=== PATIENT | female | born 1990 | race Caucasian/White ===

== ENCOUNTER 2022-02-25 16:32 | Emergency (ER) | payer BC, SELFPAY ==
[2022-02-25 16:36] VITALS: BP 120/77; PULSE 60; RESP 17; TEMP 36.2; O2SAT 100
--- NOTE | 2022-02-25 16:45 | DI.CT_ITS ---
Exam(s) CT ABDOMEN PELVIS W EXAM: CT ABDOMEN PELVIS W CLINICAL HISTORY: RLQ pain, n/v/d; hx of endometriosis TECHNIQUE: Imaging Protocol: Axial computed tomography images with coronal and sagittal reformatted images were created and reviewed CONTRAST MATERIAL: Intravenous: Omnipaque 350 Contrast volume:60 mL Oral: No COMPARISON: No exams were available for comparison FINDINGS: ABDOMEN: Lung Bases: Normal where visualized. Liver: Normal density. No measurable mass. Mild periportal edema is present. Portal, Superior Mesenteric, and Splenic Veins: Unremarkable. Gallbladder and Biliary Tract: No radiodense calculus or dilation. Mild pericholecystic fluid. Pancreas: Normal density, no abnormal calcifications or inflammatory process. Spleen: Normal. Adrenals: No masses seen. Kidneys: Normal size, contour and axis. No radiodense stones or obstructive uropathy. No masses seen. Abdominal Aorta: Abdominal portion non-dilated. Bowel: No evidence of bowel obstruction. Mildly dilated loops of small bowel which may represent an ileus. Appendix is unremarkable. Peritoneal Cavity: There is a small amount of pericholecystic fluid and a small amount of fluid in th e right pericolic gutter and pelvis. No free air. Lymph Nodes: Within normal limits. Bones: Within normal limits for the patient's age. Soft Tissues: Unremarkable. The inferior edge of left may appear to be a left breast implant is seen in the lower chest wall. PELVIS: Bladder: Symmetric distention, no gross wall thickening. Reproductive Organs: There is a 2.4 x 2.8 cm right ovarian cyst. The uterus appears mildly heterogen eous which may represent uterine fibroids. Lymph Nodes: Within normal limits. Bones: Within normal limits for the patient's age. IMPRESSION: 1. Mildly dilated loops of small bowel which may reflect an ileus. No transition point is seen to medina ggest obstruction. This may be seen with a mild enteritis. Please correlate clinically. 2. Nonspecific periportal edema in the liver. This may be due to the patient's hydration status. 3. 2.4 x 2.8 cm right ovarian cyst. No further imaging is required. 4. Small amount of abdominal ascites. RADIATION DOSE DELIVERED: 613.47mGy.cm Total DLP DATA REPOSITORY: All CT scans at this facility are submitted to the National Radiology Data Registry (NRDR) Dose Index Registry (DIR) with the [employer] (ACR). RADIATION OPTIMIZATION: All CT scans at this facility use at least one of these dose optimization te chniques: automated exposure control; mA and/or kV adjustment per patient size (includes targeted exa ms where dose is matched to clinical indication); or iterative reconstruction.
[2022-02-25] MEDS: Ondansetron 4 MG/2 ML VIAL IVP (17:14)
[2022-02-25] MEDS: Normal Saline 1,000 ML 1000 ML IV (17:14)
[2022-02-25 17:16] LABS: Abs Immature Grans 0.06 10^3/uL (0.0-0.06); Absolute Basophil Count 0.03 10^3/uL (0.0-0.2); Absolute Lymphocyte Count 0.82 10^3/uL (1.2-3.4); Absolute Neutrophil Count 11.67 10^3/uL (1.2-6.7); Basophils % 0.2; HCT 37.1 % (36.0-46.0); HGB 12.7 g/dL (11.2-15.7); Immature Grans % 0.5; Lymphocytes % 6.3; MCH 32.2 pg (27.0-33.0); MCHC 34.2 % (32.0-36.0); MCV 94 fL (80-95); MPV 10.7 fL (8.0-11.0); Monocytes % 3.2; Neutrophils % 89.8; Platelet Count 213 10^3/uL (130-400); RBC 3.94 10^6/uL (3.93-5.22); RDW 11.7 % (11.7-14.6); RDW-SD 40.6 fL; WBC 12.99 10^3/uL (4.4-10.8)
[2022-02-25] MEDS: diphenhydrAMINE 50 MG/ML VIAL 25 MG IVP (17:16)
[2022-02-25 17:17] LABS: Absolute Monocyte Count 0.42 10^3/uL (0.1-0.8)
[2022-02-25] MEDS: Ketorolac 15 MG/ML VIAL IVP (17:17)
--- NOTE | 2022-02-25 17:22 | W.ED.GENAD ---
Discharge Plan Disposition Patient Disposition: HOME Condition: Improving Discharge Details Clinical Impression: Colitis, Ovarian cyst Primary Care Provider: Unknown,Unknown ED Provider: Nikolas Resendiz Home Meds and New Rx's Prescriptions: New amoxicillin-pot clavulanate 875-125 mg tablet 1 tab PO BID 7 Days Qty: 14 0RF Discharge Instructions Instructions: Ovarian Cyst (ED), Colitis (ED) Medical Decision Making 31-year-old female history of endometriosis presents with right lower quadrant abdominal pain nausea vomiting diarrhea over the past several hours, appears moderately uncomfortable, subjective right lower quadrant tenderness without guarding or rebounding no distention nonperitoneal. Afebrile nontoxic. Appears well-hydrated. Patient is currently on her menstrual period last menstrual period was december. Consider appendicitis versus endometriosis versus colitis versus kidney stone versus UTI. Screening labs imaging analgesia antiemetics fluids close reassessment disposition pending result 20: 34 symptomatology likely related to multifocal colitis as well as possible symptomatic adnexal cyst. Patient much more comfortable after medications and fluids. Will start on Augmentin. Patient to follow-up with her supervisor [employer] as an outpatient. Strict return precautions given. HPI General Date/Time Provider Initiated Documentation: 02/25/22 16:36. HPI Narrative: 31-year-old female history of endometriosis presents with right lower quadrant abdominal pain interval last several hours associate with nausea vomiting and diarrhea, endorses urinary frequency and some back discomfort. Denies history of abdominal surgery. Last menstrual period at the end of December Related Data Home Medications Medication Instructions Recorded Confirmed amoxicillin 875 mg-potassium 1 tab PO BID 7 days #14 tabs 02/25/22 clavulanate 125 mg tablet Previous Rx's Medication Instructions Recorded amoxicillin 875 mg-potassium 1 tab PO BID 7 days #14 tabs 02/25/22 clavulanate 125 mg tablet Allergies Allergy/AdvReac Type Severity Reaction Status Date / Time codeine AdvReac Intermediate Itching Unverified 02/25/22 16:41 General Stated Complaint: Abd Prob GHADA: 3 Review of Systems Narrative: Review of Systems Constitutional: negative Eyes: negative ENT: negative Cardiovascular: negative Respiratory: negative Gastrointestinal: Abdominal pain nausea vomiting : negative Musculoskeletal: negative Skin: negative Neurologic: negative Psych: negative PFSH All Active Problems (Updated 02/25/22 @ 20:40 by Nikolas Resendiz MD) Colitis (Acute) Ovarian cyst (Acute) Social History Smoking/Tobacco Use Status: Never Smoking risk assessment performed?: Yes Alcohol Intake: current Alcohol Intake frequency: a few times a week Alcohol type: wine Drug use: Never Substance use type: does not use Do you feel safe at home: Yes Exam Narrative Exam Narrative: Physical Examination General: alert, awake, cooperative, appears moderately uncomfortable HEENT: normocephalic, atraumatic; PERRL, EOM intact, conjunctiva normal; no nasal discharge; moist mucous membranes, oral and pharyngeal mucosa normal, tolerating secretions Neck: supple, trachea midline; full ROM Chest: normal to inspection Respiratory: normal respiratory effort, speaking in full sentences, clear to auscultation, no wheezing, rales or rhonchi Cardiac: regular rate, regular rhythm, S1S2 intact, no murmurs rubs or gallops GI: Subjective tenderness in the right lower quadrant without guarding or rebounding, nondistended nonperitoneal Skin: no lesions, rashes or trauma appreciated Neuro: AAOx3, normal speech, moving all extremities Psych: Appropriate mood and affect Course Vital Signs Vital signs: Vital Signs Temperature 36.2 C L 02/25/22 16:36 Pulse 60 02/25/22 16:36 Respiratory Rate 17 02/25/22 16:36 Blood Pressure 120/77 02/25/22 16:36 Pulse Oximetry 100 02/25/22 16:36 Temperature 36.2 C L 02/25/22 16:36 Temperature Source Temporal Artery Scan 02/25/22 16:36 Pulse 60 02/25/22 16:36 Respiratory Rate 17 02/25/22 16:36 Respiratory Effort Non-Labored 02/25/22 16:39 Blood Pressure 120/77 02/25/22 16:36 Blood Pressure Position Sitting 02/25/22 16:36 Pulse Oximetry 100 02/25/22 16:36 Oxygen Delivery Method Room Air 02/25/22 16:36 Oxygen Flow Rate 0 02/25/22 16:36 Pain Level 10 02/25/22 16:36 Lab/Test Results Lab/Test Results: Laboratory Tests Range/Units 02/25/22 17:06 WBC (4.4-10.8) 10^3/uL 12.99 H RBC (3.93-5.22) 10^6/uL 3.94 Hgb (11.2-15.7) g/dL 12.7 Hct (36.0-46.0) % 37.1 MCV (80-95) fL 94 MCH (27.0-33.0) pg 32.2 MCHC (32.0-36.0) % 34.2 RDW (11.7-14.6) % 11.7 Plt Count (130-400) 10^3/uL 213 MPV (8.0-11.0) fL 10.7 Immature Gran % 0.5 Neutrophils % 89.8 Lymphocytes % 6.3 Monocytes % 3.2 Eosinophils % 0.0 Basophils % 0.2 Nucleated RBC % (0.0-0.3) % 0.0 Absolute Neutrophils (1.2-6.7) 10^3/uL 11.67 H Absolute Lymphocytes (1.2-3.4) 10^3/uL 0.82 L Absolute Monocytes (0.1-0.8) 10^3/uL 0.42 Absolute Eosinophils (0.0-0.7) 10^3/uL 0.00 Absolute Basophils (0.0-0.2) 10^3/uL 0.03 PAWSS Have you Been Recently Intoxicated or Drunk Within the Last 30 days?: No Have you Ever Experienced Previous Episodes of Alcohol Withdrawal?: No Have you ever Experienced Withdrawal Seizures?: No Have you ever Experienced Delirium Tremens(DT)s?: No Have you ever undergone Alcohol Rehabilitation Treatment (i.e, inpt ot outpatient treatment programs)?: No Have you ever Experienced Blackouts?: No Have you ever Combined Alcohol with other Downers within the last 90 days?: No Have you ever Combined Alcohol with any other Substance of Abuse during the last 90 days?: No Result: 0
[2022-02-25] MEDS: MORPHine 4 MG/ML SYR 2 MG IVP (17:23)
[2022-02-25 17:29] LABS: ALT 43 U/L (14-59); AST 30 U/L (15-37); Albumin 4.3 g/dL (3.4-5.0); Alkaline Phosphatase 41 U/L (46-116); Anion Gap 8.1 mmol/L (3-11); BUN 12 mg/dL (7-18); Bilirubin, Total 0.6 mg/dL (0.2-1.0); CO2 25.9 mmol/L (21.0-32.0); CREATININE 0.6 mg/dL (0.55-1.02); Calcium 8.6 mg/dL (8.5-10.1); Chloride 102 mmol/L (98-107); Glucose 114 mg/dL (74-106); Lipase 31 U/L (73-393); Sodium 136 mmol/L (136-145); Total Protein 7.2 g/dL (6.4-8.2)
[2022-02-25 18:23] LABS: Bilirubin Negative (Negative); Blood Negative (Negative); Clarity Clear (Clear); Glucose Negative (Negative); Ketones 80 mg/dL (Negative); Leukocyte Esterase Negative (Negative); Nitrite Negative (Negative); Specific Gravity >= 1.030 (1.005-1.025); Urobilinogen 0.2 EU/dL (Up TO 0.2)
[2022-02-25] MEDS: Omnipaque 350 MG/ML 100 ML BTL IJ (19:18)
[2022-02-25] MEDS: Normal Saline Flush 10 ML SYR IVP (19:20)
--- NOTE | 2022-02-25 19:51 | DI.VRAD_ITS ---
PROCEDURE INFORMATION: Exam: CT Abdomen And Pelvis With Contrast Exam date and time: 02/25/2022 7:03 PM Age: 31 years old Clinical indication: Abdominal pain; Localized; Right upper quadrant (ruq); Prior surgery; Surgery date: 6+ months; Surgery type: , laproscopy; Patient HX: Severe rlq pain, vomiting, diarrhea, HX of endometriosis TECHNIQUE: Imaging protocol: Computed tomography of the abdomen and pelvis with contrast. Radiation optimization: All CT scans at this facility use at least one of these dose optimization techniques: automated exposure control; mA and/or kV adjustment per patient size (includes targeted exams where dose is matched to clinical indication); or iterative reconstruction. Contrast material: OMNIPAQUE 350; Contrast volume: 60 ml; Contrast route: INTRAVENOUS (IV); COMPARISON: No relevant prior studies available. FINDINGS: Liver: There is mild periportal edema within the liver. No focal liver masses are identified. Gallbladder and bile ducts: No gallbladder wall thickening is identified. There are no gallstones identified. There is no biliary ductal dilatation. Pancreas: Normal. No ductal dilation. Spleen: Normal. No splenomegaly. Adrenal glands: Normal. No mass. Kidneys and ureters: No renal or ureteral stones are identified. There is no hydronephrosis or hydroureter. Stomach and bowel: There appears to be mild edematous wall thickening and mucosal hyperenhancement involving the distal ascending colon and hepatic flexure of the colon as well as the rectum and sigmoid colon, although these regions are not well evaluated due to lack of colonic distension. There are multiple mildly dilated air-filled loops of proximal small bowel with multiple prominent nondilated loops of distal small bowel without transition point, suggesting ileus. Appendix: No evidence of appendicitis. Intraperitoneal space: There is a small amount of free fluid in the pelvis, may be physiologic. There is also minimal ascites in the right pericolic gutter and in the pericholecystic region. There is no free intraperitoneal air. Vasculature: Unremarkable. No abdominal aortic aneurysm. Lymph nodes: Unremarkable. No enlarged lymph nodes. Urinary bladder: No bladder stones are identified. Reproductive: There is a cylindrical air density structure within the vagina, likely a tampon. There is a 2.2 x 2.6 cm simple appearing right adnexal cyst. There is also a 1.3 x 1.0 cm rim enhancing cystic right adnexal lesion on coronal image 35, series 6, consistent with a corpus luteal cyst. Bones/joints: Unremarkable. No acute fracture. Soft tissues: There appears to be of left breast implant in place, only the inferior edge of which is within the field of view of today's study. IMPRESSION: 1. Findings suggest multifocal mild colitis. 2. Mildly dilated loops of small bowel without transition point, suggesting ileus associated with mild enteritis. 3. Small ascites. 4. Mild periportal edema within the liver, likely related to the patient's hydration status. 5. Corpus luteal cyst within the right adnexa. 6. 2.2 x 2.6 cm simple appearing right adnexal cyst. No further imaging is recommended. (Reference: Rey) REFERENCES: Rey et al. Management of Incidental Adnexal Findings on CT and MRI: A White Paper of the ACR Incidental Findings Committee, J Am Svetlana Radiol. 2019;17(2):248-254. Dictated and Authenticated by: Christos Herrera MD. Ordering:LEONEL Connor MD
[2022-02-25] MEDS: Amoxicillin 875/Clav. 125 TAB PO (20:53)
[2022-02-25] MEDS: oxyCODONE 5 mg/Acetaminophen 325 mg TAB 1 TAB PO (21:09)
[2022-02-25 21:12] VITALS: BP 107/64; PULSE 62; RESP 18; O2SAT 100
== END 2022-02-25 21:27 | disposition home or self-care (01) ==
PROVIDERS: Emergency Provider Emergency Medicine
DX: K52.9 Noninfective gastroenteritis and colitis, unspecified (principal); N83.201 Unspecified ovarian cyst, right side
CPT/HCPCS: 80053; 81025; 83690; 96361; 96374; 96375; 99285; 74177; 81003; 85025; 99284; J1200; J1885; J2270; J2405; J3490

== ENCOUNTER 2025-02-12 17:28 | Observation (INO) | payer BC, SELFPAY ==
[2025-02-12 17:31] VITALS: BP 153/95; PULSE 64; RESP 16; TEMP 36.6; O2SAT 99
--- NOTE | 2025-02-12 18:00 | DI.CT_ITS ---
Exam(s) CT ABDOMEN PELVIS W EXAM: CT ABDOMEN PELVIS W CLINICAL HISTORY: right sided abdominal pain. TECHNIQUE: Imaging Protocol: Axial computed tomography images with coronal and sagittal reformatted images were created and reviewed CONTRAST MATERIAL: Intravenous: Omnipaque-350 75cc Oral: None COMPARISON: CT CT ABDOMEN PELVIS W from 02/25/2022 FINDINGS: VISUALIZED LUNG BASES: No nodules nor pleural effusions evident. ABDOMEN: LIVER: There is periportal edema in the liver, as was also evident to 2021. Portal veins are not thrombosed. There are no focal hepatic lesions. No dilated intrahepatic ducts. GALLBLADDER/BILIARY: The gallbladder is grossly abnormal. In addition to mucosal enhancement the gallbladder wall is grossly edematous measuring up to almost 2 cm thickness. There are no obvious gallstones. CBD is not dilated. PANCREAS: No evidence of pancreatic mass nor dilatation of the pancreatic duct. SPLEEN: Spleen is not enlarged. No obvious intrasplenic lesions. Splenic and portal veins are patent. ADRENALS: There are no significant adrenal masses. KIDNEYS:No cysts evident. No solid renal masses. No calculi nor hydronephrosis.. ABDOMINAL AORTA: Abdominal aorta is not enlarged. LYMPH NODES:There is no retroperitoneal nor paraaortic adenopathy. ABDOMINAL WALL: No evidence of significant anterior abdominal wall nor inguinal hernia. GI: There is no evidence of bowel obstruction, free air, nor abscess. PELVIS: GI: No evidence of appendicitis.No evidence of sigmoid diverticulitis. LYMPH NODES: There is no intrapelvic nor inguinal adenopathy. REPRODUCTIVE: The uterus is surgically absent. There are no abnormal adnexal masses but there is small/moderate amount of fluid in the dependent aspect of the pelvis. URINARY BLADDER: No calculi nor obvious masses evident OSSEOUS: No fractures and no significant osseous lesions. IMPRESSION: 1. The gallbladder is grossly edematous consistent with acute cholecystitis. There are no obvious gallstones. Follow-up ultrasound recommended. The CBD is not dilated. 2. Periportal edema is again noted in the liver. There are no discrete focal hepatic lesions. 3. The uterus is surgically absent.. There are no abnormal adnexal masses. There is a small-moderate amount of free fluid in the dependent aspect of the pelvis. This may be female physiologic or possibly related to the gallbladder pathology. Report called by myself to ER physician 02/12/2025 at 7:02 p.m. RADIATION DOSE DELIVERED: 411.63mGy.cm Total DLP DATA REPOSITORY: All CT scans at this facility are submitted to the National Radiology Data Registry (NRDR) Dose Index Registry (DIR) with the [employer] (ACR). RADIATION OPTIMIZATION: All CT scans at this facility use at least one of these dose optimization techniques: automated exposure control; mA and/or kV adjustment per patient size (includes targeted exams where dose is matched to clinical indication); or iterative reconstruction.
--- NOTE | 2025-02-12 18:07 | ED.GENADUL_ITS ---
Discharge Plan Disposition Patient Disposition: Admit to [facility] Condition: Stable Discharge Details Clinical Impression: Acalculous cholecystitis Primary Care Provider: Unknown,Unknown ED Provider: Lucas Nunez [facility] General Mode of arrival: ambulatory . Date/Time Provider Initiated Documentation: 02/12/25 17:55 . Limitations to Documentation: no limitations . Information obtained by: patient . History of Present Illness 34 year old F presents to the emergency department with the chief complaint of abdominal pain, described as severe, Quality is described as sharp, and is localized to the abdomen. Patient started experiencing this day(s) (2) and it has been constant. No relieving factors improve symptom(s), No exacerbating factors reported . Patient notes denies chest pain, fever/chills and shortness of breath. Patient did receive the following treatments prior to arrival, none Related Data Allergies Allergy/AdvReac Type Severity Reaction Status Date / Time Alpha-Gal Allergy Intermediate Anaphylaxis Verified 02/12/25 17:41 ([id number],3-Gala gluten Allergy Intermediate Hives Verified 02/12/25 17:41 codeine AdvReac Intermediate Itching Verified 02/12/25 17:41 General Stated Complaint: Abd Prob GHADA: 3 Review of Systems All systems reviewed & are unremarkable except as noted in HPI and below Constitutional Constitutional: Denies chills, Denies fever(s) and Denies weakness Cardiovascular Cardiovascular: Denies chest pain and Denies dyspnea Respiratory Respiratory: Denies cough and Denies dyspnea Gastrointestinal Gastrointestinal: Reports abdominal pain, Reports nausea and Denies vomiting Neurologic Neurologic: Denies weakness Psychiatric Psychiatric: Denies depression Exam Const General: no acute distress Orientation: alert HENAR Head: normal to inspection Ears: external ears normal General nose exam: external nose normal Mouth: moist mucous membranes Eyes General: appearance normal, both eyes and all related structures Neck Neck: normal visual inspection Resp Effort & Inspection: normal respiratory effort and able to speak in complete sentences Cardio Rate: regular rate GI Palpation: soft, not firm, no guarding and tender Skin General skin exam: no rashes or lesions noted Neuro General: patient alert and patient oriented x3 Extrem General: normal to inspection Psych Mental Status: mental status grossly normal Course Vital Signs Vital signs: Vital Signs Temperature 36.6 C 02/12/25 17:31 Pulse 64 02/12/25 17:31 Respiratory Rate 16 02/12/25 17:31 Blood Pressure 153/95 H 02/12/25 17:31 Pulse Oximetry 99 02/12/25 17:31 Temperature 36.6 C 02/12/25 17:31 Temperature Source Oral 02/12/25 17:31 Pulse 64 02/12/25 17:31 Respiratory Rate 16 02/12/25 17:31 Blood Pressure 153/95 H 02/12/25 17:31 Blood Pressure Position Sitting 02/12/25 17:31 Pulse Oximetry 99 02/12/25 17:31 Oxygen Delivery Method Room Air 02/12/25 17:31 Oxygen Flow Rate 0 02/12/25 17:31 Pain Level 5 02/12/25 17:31 Comment sitting pain is a 5 with activity it goes up to 8 02/12/25 17:31 Medical Decision Making 34-year-old female who states she has had endometriosis in the past but has not had any issues recently, prior hysterectomy, who comes in with right-sided abdominal pain since yesterday. She says that started slowly throughout the day. It is mainly in the right upper quadrant. She also has some epigastric discomfort. No vomiting though she does feel nauseous. No fevers or chills. She is stable on arrival. Her abdomen is soft and nondistended. She has tenderness in the right upper quadrant as well as the epigastric area without guarding. Negative Nevarez sign. No lower quadrant tenderness. The location of the pain I will proceed with CBC, CMP, lipase and as we do not have ultrasound currently at this time and night will obtain CT abdomen pelvis to further evaluate for entities such as cholecystitis. CT findings consistent with likely cholecystitis. Does have mild elevation LFTs. Patient is stable. Discussed the case with general surgery and they will plan to admit Differential Diagnosis Differential Diagnosis: Cholecystitis, pancreatitis, enteritis Lab Data Lab results reviewed: Yes I reviewed the patient's lab results. PFSH All Active Problems (Updated 02/12/25 @ 22:15 by Lucas Nunez MD) Acalculous cholecystitis (Acute) Acute acalculous cholecystitis (Acute) Medical History Alpha-gal syndrome Endometriosis determined by laparoscopy Surgical History History of laparoscopic-assisted vaginal hysterectomy Social History Smoking/Tobacco Use Status: Never Smoking risk assessment performed?: Yes Alcohol Intake: current Alcohol Intake frequency: a few times a week Alcohol type: wine Drug use: Never Substance use type: does not use Housing: house Do you feel safe at home: Yes
[2025-02-12 18:19] VITALS: BP 153/95; PULSE 64; RESP 16; TEMP 36.6; O2SAT 99
[2025-02-12 18:25] LABS: Abs Immature Grans 0.01 10^3/uL (0.0-0.06); HCT 35.8 % (36.0-46.0); HGB 11.8 g/dL (11.2-15.7); Immature Grans % 0.2 %; MCH 30.5 pg (27.0-33.0); MCHC 33.0 % (32.0-36.0); MCV 93 fL (80-95); MPV 10.2 fL (8.0-11.0); Platelet Count 203 10^3/uL (130-400); RBC 3.87 10^6/uL (3.93-5.22); RDW 11.9 % (11.7-14.6); RDW-SD 41.0 fL; WBC 6.22 10^3/uL (4.4-10.8)
[2025-02-12 18:27] LABS: Glucose Negative (Negative)
[2025-02-12] MEDS: Ketorolac 15 MG/ML VIAL IVP (18:29)
[2025-02-12] MEDS: Ondansetron 4 MG/2 ML VIAL IVP ×2 (18:29→20:32)
[2025-02-12] MEDS: Normal Saline 1,000 ML 1000 ML IV (18:29)
[2025-02-12] MEDS: Normal Saline - Diluent 50 ML VIAL IJ (18:41)
[2025-02-12] MEDS: Omnipaque 350 MG/ML 100 ML BTL IJ (18:41)
[2025-02-12 18:52] LABS: ALT 163 U/L (14-59); AST 78 U/L (15-37); Albumin 4.1 g/dL (3.4-5.0); Alkaline Phosphatase 89 U/L (46-116); Anion Gap 8.9 mmol/L (3-11); BUN 16 mg/dL (7-18); Bilirubin, Total 0.3 mg/dL (0.2-1.0); CO2 28.1 mmol/L (21.0-32.0); Calcium 8.9 mg/dL (8.5-10.1); Chloride 105 mmol/L (98-107); Estimated GFR 119.23 (mL/min/1.73m2); Glucose 87 mg/dL (74-106); Magnesium 2.1 mg/dL (1.8-2.4); Potassium 3.7 mmol/L (3.5-5.1); Sodium 142 mmol/L (136-145); Total Protein 7.3 g/dL (6.4-8.2)
[2025-02-12 18:55] LABS: Bilirubin, Direct 0.1 mg/dL (0.0-0.2); Lipase 26 U/L (<78); TSH (W/Ref FT4) 2.95 uIU/mL (0.36-3.74)
[2025-02-12] MEDS: PIPERACILLIN/TAZO 4.5 GM in Normal Saline 100 ML IVPB (20:24)
--- NOTE | 2025-02-12 20:30 | W.SURGCON ---
Date of service: 02/12/25 Time of Service: 20:30 Assessment and Plan Assessment and plan (1) Acute acalculous cholecystitis: Status: Acute Assessment and plan: 34-year-old female presenting with 36 hours of right upper quadrant abdominal pain. Pain and nausea improved with medications in the emergency department. Very tender on exam of the right upper quadrant. CT scan with severely thickened gallbladder. Periportal edema seen on CT scan 3 years ago as well. Intrinsic LFTs elevated indicating inflammation from gallbladder is affecting the liver - Level of wall thickening is severe and abnormal, and inflammation appears to be affecting the liver. Additionally no stones seen on CT scan. ? Related to underlying medical disease ?. Level of inflammation puts patient at increased risk for complications - Scheduled IV Zosyn - Scheduled Advil and Tylenol - As needed narcotics - Okay for clear liquid diet now - N.p.o. at midnight - Right upper quadrant ultrasound in the morning - Will also obtain MRI for further evaluation - I am currently very hesitant to proceed with surgical intervention. Will trend labs and obtain additional imaging. Patient may require transfer to higher level of care with more advanced equipment and specialty services (2) History of laparoscopic-assisted vaginal hysterectomy: Assessment and plan: Multiple prior laparoscopic surgeries, largely focused in the pelvis. Possibility of scar tissue related to prior surgeries however - Increased risk for bowel injury related to scar tissue from prior surgeries (3) Endometriosis determined by laparoscopy: (4) Alpha-gal syndrome: History of Present Illness History of Present Illness Chief Complaint: RUQ pain Narrative: 34-year-old female with history of alpha gal presenting with 36 hours of right upper quadrant pain. Patient states she had eggs for breakfast yesterday morning, which she is allergic to, after which time she developed right upper quadrant pain. Pain radiates to the back. Associated with bloating and nausea. No vomiting. Pain persisted and was not improving so patient went to the emergency department. IV pain medication and nausea medications have made the patient feel better in the emergency room. Patient had fevers and chills last night. Denies chest pain, shortness of breath. History of lap assisted hysterectomy. History of laparoscopic surgery for endometriosis Review of Systems Constitutional Constitutional: Reports chills, Reports fever(s), Denies headache(s), Reports poor appetite and Denies weakness ENT Ears, Nose, Mouth, and Throat: Denies dysphagia, Denies headache(s) and Denies disequilibrium Cardiovascular Cardiovascular: Denies chest pain, Denies irregular heart rhythm, Denies lightheadedness and Denies dyspnea Respiratory Respiratory: Denies cough and Denies dyspnea Gastrointestinal Gastrointestinal: Reports abdominal pain, Reports bloating, Denies dysphagia, Denies heartburn, Reports nausea and Denies vomiting Neurologic Neurologic: Denies confusion, Denies headache(s), Denies disequilibrium and Denies weakness Psychiatric Psychiatric: Denies confusion Hematologic/Lymphatic Hematologic/Lymphatic: Denies easy bleeding and Denies easy bruising PFSH All Active Problems (Updated 02/12/25 @ 21:35 by Nestor Quiñonse DO) Acute acalculous cholecystitis (Acute) Medical History Alpha-gal syndrome Endometriosis determined by laparoscopy Surgical History History of laparoscopic-assisted vaginal hysterectomy Social History Smoking/Tobacco Use Status: Never Smoking risk assessment performed?: Yes Alcohol Intake: current Alcohol Intake frequency: a few times a week Alcohol type: wine Drug use: Never Substance use type: does not use Housing: house Do you feel safe at home: Yes Exam Const General: cooperative, comfortable, no acute distress and well developed Eyes Sclera: sclerae normal Pupils: PERRL EOM: EOM intact bilaterally Resp Effort & Inspection: normal respiratory effort and no cough Cardio Rate: regular rate GI Inspection: normal to inspection and scar (Laparoscopic trocar scars well-healed) Palpation: soft, no guarding and tender in the RUQ and Nevarez's sign positive Skin General skin exam: turgor normal, no jaundice, no pallor and scars Neuro General: patient alert, patient awake and patient oriented x3 Cognition: normal cognition Speech: speech normal Results Last Vital Signs Temp 36.6 C 02/12/25 18:19 Pulse 64 02/12/25 18:19 Resp 16 02/12/25 18:19 BP 153/95 H 02/12/25 18:19 Pulse Ox 99 02/12/25 18:19 Labs 02/12/25 18:15 02/12/25 18:15 Labs: Laboratory Results - last 24 hr 02/12/25 02/12/25 02/12/25 17:48 18:12 18:15 WBC 6.22 RBC 3.87 L Hgb 11.8 Hct 35.8 L MCV 93 MCH 30.5 MCHC 33.0 RDW 11.9 Plt Count 203 MPV 10.2 Immature Gran % 0.2 Neutrophils % 48.0 Lymphocytes % 42.1 Monocytes % 7.2 Eosinophils % 1.9 Basophils % 0.6 Nucleated RBC % 0.0 Absolute Neutrophils 2.98 Absolute Lymphocytes 2.62 Absolute Monocytes 0.45 Absolute Eosinophils 0.12 Absolute Basophils 0.04 Sodium 142 Potassium 3.7 Chloride 105 Carbon Dioxide 28.1 Anion Gap 8.9 BUN 16 Creatinine 0.6 Est GFR (CKD-EPI 2020) 119.23 Glucose 87 Calcium 8.9 Magnesium 2.1 Total Bilirubin 0.3 Conjugated Bilirubin 0.1 AST 78 H ALT 163 H Alkaline Phosphatase 89 Total Protein 7.3 Albumin 4.1 Lipase 26 TSH 2.95 Urine Color Yellow Urine Clarity Clear Urine pH 6.5 Ur Specific [place] 1.015 Urine Protein Negative Urine Ketones Negative Urine Blood Negative Urine Nitrite Negative Urine Bilirubin Negative Urine Urobilinogen 0.2 Ur Leukocyte Esterase Negative Urine Glucose Negative Imaging Abdomen CT scan report/results: report reviewed and image reviewed (CT scans 01/2022 and 01/2025. Periportal edema in both. GB now with severe wall thickening)
[2025-02-12] MEDS: fentaNYL 100 MCG/2 ML VIAL 75 MCG IVP (20:31)
--- NOTE | 2025-02-12 21:42 | W.PM.HP.N ---
Date of service: 02/12/25 Time of Service: 21:42 Assessment and Plan Assessment and plan (1) Acute acalculous cholecystitis: Status: Acute Assessment and plan: See consult note from same day for history, assessment and plan -IV abx -repeat AM labs -RUQ US -MRCP -great concern for amount of gallbladder wall thickening and inflamation affecting the liver PFSH All Active Problems (Updated 02/12/25 @ 21:35 by Nestor Quiñones DO) Acute acalculous cholecystitis (Acute) Medical History Alpha-gal syndrome Endometriosis determined by laparoscopy Surgical History History of laparoscopic-assisted vaginal hysterectomy Social History Smoking/Tobacco Use Status: Never Smoking risk assessment performed?: Yes Alcohol Intake: current Alcohol Intake frequency: a few times a week Alcohol type: wine Drug use: Never Substance use type: does not use Housing: house Do you feel safe at home: Yes Meds Allergies and Home Medications Allergies Allergy/AdvReac Type Severity Reaction Status Date / Time Alpha-Gal Allergy Intermediate Anaphylaxis Verified 02/12/25 17:41 (Kqdtdmeqc-Sdtwv-9,3-Gala gluten Allergy Intermediate Hives Verified 02/12/25 17:41 codeine AdvReac Intermediate Itching Verified 02/12/25 17:41 Results Labs 02/12/25 18:15 02/12/25 18:15 Labs: Laboratory Results - last 24 hr 02/12/25 02/12/25 02/12/25 17:48 18:12 18:15 WBC 6.22 RBC 3.87 L Hgb 11.8 Hct 35.8 L MCV 93 MCH 30.5 MCHC 33.0 RDW 11.9 Plt Count 203 MPV 10.2 Immature Gran % 0.2 Neutrophils % 48.0 Lymphocytes % 42.1 Monocytes % 7.2 Eosinophils % 1.9 Basophils % 0.6 Nucleated RBC % 0.0 Absolute Neutrophils 2.98 Absolute Lymphocytes 2.62 Absolute Monocytes 0.45 Absolute Eosinophils 0.12 Absolute Basophils 0.04 Sodium 142 Potassium 3.7 Chloride 105 Carbon Dioxide 28.1 Anion Gap 8.9 BUN 16 Creatinine 0.6 Est GFR (CKD-EPI 2020) 119.23 Glucose 87 Calcium 8.9 Magnesium 2.1 Total Bilirubin 0.3 Conjugated Bilirubin 0.1 AST 78 H ALT 163 H Alkaline Phosphatase 89 Total Protein 7.3 Albumin 4.1 Lipase 26 TSH 2.95 Urine Color Yellow Urine Clarity Clear Urine pH 6.5 Ur Specific [place] 1.015 Urine Protein Negative Urine Ketones Negative Urine Blood Negative Urine Nitrite Negative Urine Bilirubin Negative Urine Urobilinogen 0.2 Ur Leukocyte Esterase Negative Urine Glucose Negative Last Vital Signs Temp 36.6 C 02/12/25 18:19 Pulse 64 02/12/25 18:19 Resp 16 02/12/25 18:19 BP 153/95 H 02/12/25 18:19 Pulse Ox 99 02/12/25 18:19 Time Spent Time spent with Patient: >75 minutes Time was spent: preparing to see the patient(eg.review tests), obtaining and/or reviewing separately otained hiistory, ordering medications,tests, procedures, referring, communicating with other health care transition coordinator, indepentently interpreting results, counseling the patient and care coordination
--- NOTE | 2025-02-12 22:26 | W.PC.ACHO ---
Registration Status: REG ER Primary Language: Preferred Language: ED Information & Data Chief Complaint Abd Prob 02/12/25 18:10 Triage Note patient presented to the ER 02/12/25 17:31 with right upper quadrant pain and feelings of bloated [place].Patient state when she walk she feels as if pressure is on her lungs. she denies chest pain but state when she walks she feels the pain going up to her chest. she state she thinks if she vomits she would feel better but she is unable to vomit Medical / Surgical History (Last Reviewed 02/12/25 @ 21:31 by Nestor Quiñones DO) Alpha-gal syndrome Endometriosis determined by laparoscopy (Last Reviewed 02/12/25 @ 21:31 by Nestor Quiñones DO) History of laparoscopic-assisted vaginal hysterectomy Most Recent Vital Signs Temperature 36.6 C 02/12/25 18:19 Temperature Source Oral 02/12/25 18:19 Pulse 64 02/12/25 18:19 Respiratory Rate 16 02/12/25 18:19 Blood Pressure 153/95 H 02/12/25 18:19 Blood Pressure Position Sitting 02/12/25 18:19 Pulse Oximetry 99 02/12/25 18:19 Oxygen Delivery Method Room Air 02/12/25 18:19 Oxygen Flow Rate 0 02/12/25 18:19 Pain Level 5 02/12/25 18:19 Comment sitting pain is a 5 with activity it goes up to 8 02/12/25 18:19 Allergies Alpha-Gal (Pxqkfcire-Tzgqz-8,3-Gala Allergy (Intermediate, Verified 02/12/25 17:41) Anaphylaxis gluten Allergy (Intermediate, Verified 02/12/25 17:41) Hives per patient codeine Adverse Reaction (Intermediate, Verified 02/12/25 17:41) Itching Active Medications Generic Name Dose Route Start Last Admin Trade Name Freq PRN Reason Stop Dose Admin Iohexol 100 ml 02/12/25 18:45 02/12/25 18:41 Omnipaque 350 Mg/Ml 100 Ml Btl IJ 03/14/25 23:59 75 ml DIRECTED ISMAEL Administration Sodium Chloride 50 ml 02/12/25 18:45 02/12/25 18:41 Normal Saline - Diluent 50 Ml Vial IJ 50 ml .FOR DI USE ISMAEL Administration IV IV Catheter Type [Right Saline Lock Antecubital] IV Catheter Gauge [Right 20 Antecubital] Diet Orders Category Date Time Status Nothing Per Oral [DIET] Nutrition 02/13/25 00:01 Ordered Regular/Normal [DIET] Nutrition 02/12/25 Dinner Active Diagnostics 02/12/25 02/12/25 02/12/25 Range/Units 18:15 18:12 17:48 WBC 6.22 (4.4-10.8) 10^3/uL RBC 3.87 L (3.93-5.22) 10^6/uL Hgb 11.8 (11.2-15.7) g/dL Hct 35.8 L (36.0-46.0) % MCV 93 (80-95) fL MCH 30.5 (27.0-33.0) pg MCHC 33.0 (32.0-36.0) % RDW 11.9 (11.7-14.6) % Plt Count 203 (130-400) 10^3/uL MPV 10.2 (8.0-11.0) fL Immature Gran % 0.2 % Neutrophils % 48.0 % Lymphocytes % 42.1 % Monocytes % 7.2 % Eosinophils % 1.9 % Basophils % 0.6 % Nucleated RBC % 0.0 (0.0-0.3) % Absolute Neutrophils 2.98 (1.2-6.7) 10^3/uL Absolute Lymphocytes 2.62 (1.2-3.4) 10^3/uL Absolute Monocytes 0.45 (0.1-0.8) 10^3/uL Absolute Eosinophils 0.12 (0.0-0.7) 10^3/uL Absolute Basophils 0.04 (0.0-0.2) 10^3/uL Sodium 142 (136-145) mmol/L Potassium 3.7 (3.5-5.1) mmol/L Chloride 105 (98-107) mmol/L Carbon Dioxide 28.1 (21.0-32.0) mmol/L Anion Gap 8.9 (3-11) mmol/L BUN 16 (7-18) mg/dL Creatinine 0.6 (0.55-1.02) mg/dL Est GFR (CKD-EPI 2020) 119.23 (mL/min/1.73m2) Glucose 87 (74-106) mg/dL Calcium 8.9 (8.5-10.1) mg/dL Magnesium 2.1 (1.8-2.4) mg/dL Total Bilirubin 0.3 (0.2-1.0) mg/dL Conjugated Bilirubin 0.1 (0.0-0.2) mg/dL AST 78 H (15-37) U/L ALT 163 H (14-59) U/L Alkaline Phosphatase 89 (46-116) U/L Total Protein 7.3 (6.4-8.2) g/dL Albumin 4.1 (3.4-5.0) g/dL Lipase 26 (<78) U/L TSH 2.95 (0.36-3.74) uIU/mL Urine Color Yellow (Yellow) Urine Clarity Clear (Clear) Urine pH 6.5 (5-8) Ur Specific [place] 1.015 (1.005-1.025) Urine Protein Negative (Neg-Trace) mg/dL Urine Ketones Negative (Negative) mg/dL Urine Blood Negative (Negative) Urine Nitrite Negative (Negative) Urine Bilirubin Negative (Negative) Urine Urobilinogen 0.2 (Up to 0.2) mg/dL Ur Leukocyte Esterase Negative (Negative) Urine Glucose Negative (Negative) mg/dL [id number] Documentation POC Urine Test Start: 02/12/25 18:23 Freq: Status: Active Protocol: Activity Type Activity Date Activity User E-sign Co-sign Detail Recorded Client Recorded Date Recorded By Document 02/12/25 18:23 N.RILR [id number] 02/12/25 18:23 N.RILR Intake and Output - 24 Hour Total 02/12/25 17:28 thru 02/12/25 17:31 Weight 63.503 kg Falls Risk Assessment History of Falls No History 02/12/25 18:19 Contributing Factors No Factors 02/12/25 18:19 Ambulatory Aids Independent 02/12/25 18:19 Tubes/Lines None 02/12/25 18:19 Gait Evaluation No gait disturbance 02/12/25 18:19 Cognition No cognitive impairment 02/12/25 18:19 Fall Total Score 0 02/12/25 18:19 Level of Risk Standard/Low Risk 02/12/25 18:19 Problems (Last Reviewed 02/12/25 @ 21:31 by Nestor Quiñones DO) Acute acalculous cholecystitis (Acute) v v v v v v v v v Sending and/or Receiving Nurses: Please use comment section below to note any information pertinent to the patient hand-off not included above. Information / Comments:34 F, pleasant and cooperative admit through the ED to Med/ surg. for cholycystitis no stones found. Recieved fentynal , zosyn and 1L of NS in the ED. Pt has 20 g rt AC, will be NPO @ midnight awaiting potential Sx tomorrow. Pt does endorse abd. pain. Report received from:Han, ED nurse called for report @ 2014, will be admit to Rm [id number].
[2025-02-13] VITALS (27 sets, daily range): BP systolic 120–141; BP diastolic 67–92; PULSE 41–61; RESP 12–22; TEMP 36.3–37.3; O2SAT 93–100; BMI 26.4
--- NOTE | 2025-02-13 | DI.MRI_ITS ---
Exam(s) MR ABDOMEN WO EXAM: MR ABDOMEN WO CLINICAL HISTORY: severe GB thickening. r/o malignancy. preop plan TECHNIQUE: Multiplanar multisequence MRI of the Abdomen was performed. COMPARISON: CT CT ABDOMEN PELVIS W from 02/12/2025 US US ABDOMEN LIMITED from 02/13/2025 FINDINGS: There is patient motion artifact. Lung bases: There are bilateral pleural effusions, right greater than left. There is a right lower lobe infiltrate. Liver: No suspicious hepatic masses are present. There is normal signal intensity of the liver. There is no intrahepatic biliary ductal dilatation. Pancreas: Unremarkable. Gallbladder and Bile Ducts: The gallbladder is distended measuring 4 cm. There is mild persistent gallbladder wall thickening. There is pericholecystic fluid present. There is layering debris in the proximal gallbladder. No stones are present. No intra or extrahepatic biliary ductal dilatation is seen. The region of the cystic duct is obscured and cannot be visualized. Adrenals: Unremarkable. Kidneys: No evidence of hydronephrosis. No suspicious renal masses are present. Spleen: Unremarkable. Bowel: Unremarkable. Aorta: Unremarkable. Soft Tissues: There is a small fat containing umbilical hernia. The patient has bilateral breast implants which are incompletely visualized. Peritoneal cavity: There is a small amount of perihepatic ascites and a small amount of fluid in the right pericolic gutter. Bone: Unremarkable. Lymph Nodes: Unremarkable. IMPRESSION: 1. Findings again suggestive of a calculus cholecystitis. 2. Small bilateral pleural effusions, right greater than left and right basilar infiltrate which may represent atelectasis or pneumonia. Please correlate clinically. 3. Small amount of ascites in the perihepatic region in the right pericolic gutter. 4. Findings were discussed with Dr. Quiñones on 02/13/2025. DATA REPOSITORY:
--- NOTE | 2025-02-13 | DI.US_ITS ---
Exam(s) US ABDOMEN LIMITED EXAM: US ABDOMEN LIMITED CLINICAL HISTORY: gallbladder TECHNIQUE: Ultrasound abdomen performed using standard protocol. COMPARISON: CT CT ABDOMEN PELVIS W from 02/12/2025 FINDINGS: PANCREAS: Normal where visualized. LIVER: Normal. Hepatopetal flow in the Portal Vein. The liver measures in 18 cm length. No evidence of a hepatic mass. GALLBLADDER: No evidence of cholelithiasis. There is diffuse wall thickening up to 1.4 cm. There is a small amount of pericholecystic fluid. BILIARY SYSTEM: Common bile duct measures < 7 mm. No intrahepatic biliary ductal dilation. NEVAREZ'S SIGN: Positive RIGHT KIDNEY: Kidney is normal in size. No evidence of renal calculi. No evidence of hydronephrosis. No renal mass or cyst identified. ASCITES: None seen. IMPRESSION: Diffuse gallbladder wall thickening, pericholecystic fluid and positive sonographic Nevarez sign. No cholelithiasis is seen. Findings suspicious for acute acalculous cholecystitis. DATA REPOSITORY:
[2025-02-13] MEDS: oxyCODONE 5 MG TAB PO ×4 (00:30→12:49)
[2025-02-13] MEDS: Lactated Ringers 1,000 ML 125 ML IV ×2 (01:33→09:02)
[2025-02-13] MEDS: Normal Saline Flush 10 ML SYR IVP ×3 (01:34→21:14)
[2025-02-13] MEDS: PIPERACILLIN/TAZO 3.375 GM in Normal Saline 50 ML IVPB ×4 (02:52→21:13)
[2025-02-13] MEDS: oxyCODONE 10 MG TAB PO ×3 (03:11→12:50)
--- NOTE | 2025-02-13 07:36 | PGE_ITS ---
Date of Service Date of service: 02/13/25 Time of Service: 07:36 Assessment and Plan Assessment and plan (1) Acute acalculous cholecystitis: Status: Acute Assessment and plan: 34-year-old female with right upper quadrant pain. Initial CT scan showing gallbladder wall up to 2 cm in size. Ultrasound completed this morning but wall 0.7 to 1.4 cm in thickness with pericholecystic edema, no stones. Likely acute on chronic. Possibly related to underlying medical diagnoses/food intolerance. AST/ALT remain slightly elevated, bili and alk phos normal. Normal white count - MRCP ordered for this morning - Will review all imaging with radiology - Extensively discussed treatment options with patient and family at bedside. Reviewed the risks associated with operating in setting of severe wall thickening and likely difficulties identifying critical structures, and possible negative outcomes if injury occurs in that setting - Treatment options include continued IV antibiotics, IR drain, surgery at this hospital, transfer to higher level of care with robotics and/or advanced hepatobiliary surgeon - Continue IV antibiotics for now - As needed pain and nausea medications (2) Alpha-gal syndrome: Subjective Subjective Interval history since last seen: Vitals normal. Pain and nausea overnight controlled with medications. US and MRCP pending today Exam Const General: cooperative, uncomfortable (appears tentative and mildly uncomfortable) and no acute distress Eyes Sclera: sclerae normal Pupils: PERRL EOM: EOM intact bilaterally Resp Effort & Inspection: normal respiratory effort and no cough Cardio Rate: regular rate GI Inspection: normal to inspection and scar Palpation: no guarding and tender in the RLQ (Palpable fullness extending 3 cm below rib cage) Skin General skin exam: turgor normal, no ecchymosis, no jaundice and no pallor Neuro General: patient alert, patient awake and patient oriented x3 Cognition: normal cognition Speech: speech normal Objective Last Vital Signs Temp 36.6 C 02/13/25 07:25 Pulse 45 L 02/13/25 07:25 Resp 18 02/13/25 07:25 BP 120/71 02/13/25 07:25 Pulse Ox 100 02/13/25 07:25 Laboratory Results - last 24 hr 02/12/25 02/12/25 02/12/25 17:48 18:12 18:15 WBC 6.22 RBC 3.87 L Hgb 11.8 Hct 35.8 L MCV 93 MCH 30.5 MCHC 33.0 RDW 11.9 Plt Count 203 MPV 10.2 Immature Gran % 0.2 Neutrophils % 48.0 Lymphocytes % 42.1 Monocytes % 7.2 Eosinophils % 1.9 Basophils % 0.6 Nucleated RBC % 0.0 Absolute Neutrophils 2.98 Absolute Lymphocytes 2.62 Absolute Monocytes 0.45 Absolute Eosinophils 0.12 Absolute Basophils 0.04 Sodium 142 Potassium 3.7 Chloride 105 Carbon Dioxide 28.1 Anion Gap 8.9 BUN 16 Creatinine 0.6 Est GFR (CKD-EPI 2020) 119.23 Glucose 87 Calcium 8.9 Magnesium 2.1 Total Bilirubin 0.3 Conjugated Bilirubin 0.1 AST 78 H ALT 163 H Alkaline Phosphatase 89 Total Protein 7.3 Albumin 4.1 Lipase 26 TSH 2.95 Urine Color Yellow Urine Clarity Clear Urine pH 6.5 Ur Specific [place] 1.015 Urine Protein Negative Urine Ketones Negative Urine Blood Negative Urine Nitrite Negative Urine Bilirubin Negative Urine Urobilinogen 0.2 Ur Leukocyte Esterase Negative Urine Glucose Negative PAWSS Have you Been Recently Intoxicated or Drunk Within the Last 30 days?: No Have you Ever Experienced Previous Episodes of Alcohol Withdrawal?: No Have you ever Experienced Withdrawal Seizures?: No Have you ever Experienced Delirium Tremens(DT)s?: No Have you ever undergone Alcohol Rehabilitation Treatment (i.e, inpt ot outpatient treatment programs)?: No Have you ever Experienced Blackouts?: No Have you ever Combined Alcohol with other Downers within the last 90 days?: No Have you ever Combined Alcohol with any other Substance of Abuse during the last 90 days?: No Result: 0 Time Spent with Patient Time Spent with Patient: 35-49 minutes Time was spent: preparing to see the patient(eg.review tests), ordering medications,tests, procedures, referring, communicating with other health dog day care attendant, indepentently interpreting results, counseling the patient and care coordination
[2025-02-13 08:15] LABS: Abs Immature Grans 0.01 10^3/uL (0.0-0.06); HCT 37.9 % (36.0-46.0); HGB 12.4 g/dL (11.2-15.7); Immature Grans % 0.2 %; MCH 30.9 pg (27.0-33.0); MCHC 32.7 % (32.0-36.0); MCV 95 fL (80-95); MPV 10.4 fL (8.0-11.0); Platelet Count 208 10^3/uL (130-400); RBC 4.01 10^6/uL (3.93-5.22); RDW 12.3 % (11.7-14.6); RDW-SD 42.8 fL; WBC 6.65 10^3/uL (4.4-10.8)
[2025-02-13 08:33] LABS: INR 1.0 (0.9-1.1); Prothrombin Time 10.4 sec (9.1-11.1)
[2025-02-13 08:37] LABS: Anion Gap 6.3 mmol/L (3-11); BUN 12 mg/dL (7-18); CO2 30.7 mmol/L (21.0-32.0); Calcium 8.6 mg/dL (8.5-10.1); Chloride 106 mmol/L (98-107); Estimated GFR 114.88 (mL/min/1.73m2); Glucose 88 mg/dL (74-106); Potassium 3.6 mmol/L (3.5-5.1); Sodium 143 mmol/L (136-145)
[2025-02-13 08:42] LABS: PTT Activated 26.2 sec (20.6-30.2)
[2025-02-13] MEDS: Ibuprofen 600 MG TAB PO ×3 (08:42→21:12)
[2025-02-13] MEDS: Acetaminophen 325 MG TAB 650 MG PO ×3 (08:42→21:12)
[2025-02-13 08:43] LABS: ALT 173 U/L (14-59); AST 80 U/L (15-37); Albumin 3.9 g/dL (3.4-5.0); Alkaline Phosphatase 94 U/L (46-116); Bilirubin, Direct 0.2 mg/dL (0.0-0.2); Bilirubin, Total 0.8 mg/dL (0.2-1.0); Total Protein 6.9 g/dL (6.4-8.2)
[2025-02-13] MEDS: Ondansetron 4 MG/2 ML VIAL IVP ×3 (08:50→17:42)
--- NOTE | 2025-02-13 09:22 | PDOC.CMIN ---
Date of service: 02/13/25 Time of Service: 09:22 Care Management Initial Assmt Initial Assessment Reason for Hospitalization: cholecystitis Functional Status/Living Situation Patient Presentation: Merly was in the OR when CM went to meet with her. She was admitted with acute cholecystitis and was kept NPO overnight. Lila's GB was extremely inflamed with surrounding edema and there were concerns about doing surgery at this facility. Additional imaging was done this morning and the decision was made to proceed with a laparoscopic cholecystectomy. Town of Residence: [place], [place] Resides with: Spouse ( Masood) Instrumental Activities of Daily Living (ADLs): Independent Medications Medication Management: No Issues/Barriers identified Advance Directives Advance Directives: Do you have an Advance Directive: N 02/25/22, 16:39 AD On File at [facility]: N 02/25/22, 16:39 Date Asked 02/12/25 02/12/25, 17:31 AD Date Reviewed COLST On File at [facility] COLST Date Scanned Code Status Resuscitation Status Full Code Portal Pt does not currently have a portal and education provided: Yes Insurance Coverage/Financial Issues Insurance: BC/BS Federal Care Team Visit Care Team Role Provider Type Unknown Unknown Primary Care Provider STAFF PHYSICIAN Other Providers Lucas Nunez MD Emergency Provider [facility] STAFF PHYSICIAN Nestor Quiñones, DO Admit Provider OSTEOPATHIC DOCTOR Attending Provider Other Providers Discharge Potential Discharge Needs: Surgical F/U Appt Anticipated Barriers to Discharge: None Identified Patient/Family Education Needs: Review discharge instructions, discuss Ask Me Three Transportation: Private vehicle Plan: Anticipate Merly will be discharged home with no new services when medically cleared. She will follow up with her PCP, surgeon and plan of care and transport with family. CM will follow and continue to support discharge needs. Social Determinants of Health Screening Social Determinants of health last assessed in clinic: 02/14/25 Will the Patient Participate in the Screening?: Yes Do you worry about having a steady place to live?: no Problems where you live: no known problems In the past 12 months, have you had to go without electric, gas, oil or water in your home?: no 1. Within the past 12 months, we worried whether our food would run out before we got money to buy more.: Never true 2. Within the past 12 months, the food we bought just didn't last and we didn't have money to get more.: Never true Has lack of transportation kept you from medical appointments or from doing things needed for daily living?: no Has anyone in your life made you feel unsafe or unsupported?: no How hard is it for you to pay for the very basics like food, housing, medical care, and heating? Would you say it is:: Not hard at all Do you want help finding or keeping work or a job?: I do not need or want help If for any reason you need help with day-to-day activities such as bathing, preparing meals, shopping, managing finances, etc., do you get the help you need?: I don?t need any help How often do you feel lonely or isolated from those around you?: Never Do you speak a language other than Portuguese at home?: No Does the patient want assistance with any of the above?: No PFSH All Active Problems Acalculous cholecystitis (Acute) Acute acalculous cholecystitis (Acute) Medical History Alpha-gal syndrome Endometriosis determined by laparoscopy Surgical History History of laparoscopic-assisted vaginal hysterectomy Social History Smoking/Tobacco Use Status: Never Smoking risk assessment performed?: Yes Alcohol Intake: current Alcohol Intake frequency: a few times a week Alcohol type: wine Drug use: Never Substance use type: does not use Housing: house Do you feel safe at home: Yes
[2025-02-13] MEDS: Enoxaparin 40 MG/0.4 ML SYR SC (10:40)
--- NOTE | 2025-02-13 15:11 | CHAPLAIN ---
Merly was getting ready to go for a scan when I stopped in. Her , and friend Shania Chand ([facility] Director of Cardiac Rehab and Infusion) were with her. Merly has two children and seems to be well supported by family and friends.
--- NOTE | 2025-02-13 15:13 | ANES.PREOP_ITS ---
General Info Date of Service Date Performed: 02/13/25 Height: 5 ft 1 in Weight: 63.503 kg Body Mass Index (BMI): 26.4 Surgical Procedure: Operation Date: 02/13/25 08:10 Proposed Procedure Side Surgeon p Cholecystectomy Laparoscopic Nestor Quiñones DO Meds Allergies and Home Medications Allergies Allergy/AdvReac Type Severity Reaction Status Date / Time Alpha-Gal Allergy Intermediate Anaphylaxis Verified 02/12/25 17:41 (Dnvdnwcan-Docds-1,3-Gala gluten Allergy Intermediate Hives Verified 02/12/25 17:41 codeine AdvReac Intermediate Itching Verified 02/12/25 17:41 Home Medication ?Medication ?Instructions ?Recorded Bi-Est 1 ml vaginal HS 02/13/25 Progesterone E4M 150 mg PO HS 02/13/25 lactobacillus combo no.11 15 1 cap PO DAILY 02/13/25 billion cell sprinkle capsule magnesium glycinate 100 mg (as 100 mg PO DAILY 5 glycinate) tablet (Mag Glycinate) multivitamin 1 tab PO QAM 02/13/25 Current Visit Medications: Current Medications Generic Name Dose Route Start Last Admin Trade Name Freq PRN Reason Stop Dose Admin Acetaminophen 650 mg 02/13/25 08:30 02/13/25 11:54 Acetaminophen 325 Mg Tab PO 650 mg QID ISMAEL Administration Enoxaparin Sodium 40 mg 02/13/25 10:00 02/13/25 10:40 Enoxaparin 40 Mg/0.4 Ml Syr SC 40 mg Q24H ISMAEL Administration Hydromorphone HCl 0.2 mg 02/12/25 21:22 Hydromorphone 2 Mg/Ml Syr IVP Q2H PRN PRN Ringer's Solution 1,000 mls @ 125 mls/hr 02/12/25 21:30 02/13/25 09:02 IV 125 mls/hr INFUSION ISMAEL Administration Piperacillin Sod/Tazobactam 50 mls @ 100 mls/hr 02/13/25 02:00 02/13/25 14:06 Sod 3.375 gm/ Sodium Chloride IVPB 100 mls/hr Q6H ISMAEL Administration Cefazolin Sodium 2,000 mg/ 50 mls @ 100 mls/hr 02/13/25 15:05 Sodium Chloride IVPB 02/13/25 15:34 NOW ONE IV Miscellaneous Supplies 1 each 02/12/25 21:30 Iv Access IV DIRECTED ISMAEL Ibuprofen 600 mg 02/13/25 08:30 02/13/25 11:54 Ibuprofen 600 Mg Tab PO 600 mg QID ISMAEL Administration Indocyanine Green 5 mg 02/13/25 15:15 Indocyanine Green 25 Mg Vial IVP DIRECTED ISMAEL Iohexol 100 ml 02/12/25 18:45 02/12/25 18:41 Omnipaque 350 Mg/Ml 100 Ml Btl IJ 03/14/25 23:59 75 ml DIRECTED ISMAEL Administration Ondansetron HCl 4 mg 02/12/25 21:16 02/13/25 12:50 Ondansetron 4 Mg/2 Ml Vial IVP 4 mg Q4H PRN PRN Administration Oxycodone HCl 5 mg 02/12/25 21:22 02/13/25 12:49 Oxycodone 5 Mg Tab PO 5 mg Q4H PRN PRN Administration Oxycodone HCl 10 mg 02/12/25 21:22 02/13/25 12:50 Oxycodone 10 Mg Tab PO 10 mg Q4H PRN PRN Administration Sodium Chloride 0 ml 02/12/25 21:16 02/13/25 01:34 Normal Saline Flush 10 Ml Syr IVP 10 ml PRN PRN Administration Sodium Chloride 0 ml 02/13/25 08:30 02/13/25 08:43 Normal Saline Flush 10 Ml Syr IVP 10 ml BID ISMAEL Administration Sodium Chloride 0 ml 02/12/25 21:16 Normal Saline 10 Ml Vial IJ DIRECTED PRN PFSH Active Problems Active Problems: Problem Status Onset Code Acalculous cholecystitis Acute K81.9 Acute acalculous cholecystitis Acute K81.0 Medical History Medical History Alpha-gal syndrome Endometriosis determined by laparoscopy Surgical History Surgical History History of laparoscopic-assisted vaginal hysterectomy Tobacco Smoking/Tobacco Use Status: Never Alcohol Alcohol Intake: current Alcohol intake frequency: a few times a week Alcohol type: wine Substance Use Substance use: Never Substance use type: does not use Vital Signs and Lab Results Vital Signs Most Recent Vital Signs in EMR: Most Recent Vital Signs Temp Pulse Resp BP Pulse Ox 36.6 C 45 L 18 120/71 100 02/13/25 07:25 02/13/25 07:25 02/13/25 07:25 02/13/25 07:25 02/13/25 07:25 Point of Care Results Point of Care Results: POC- Test(urine) Negative 02/12/25 18:23 Lab Results 02/13/25 08:01 02/13/25 08:01 Complete Blood Count: 2 WBC, (4.4-10.8) 6.65 10^3/uL Today, 08:01 RBC, (3.93-5.22) 4.01 10^6/uL Today, 08:01 Hgb, (11.2-15.7) 12.4 g/dL Today, 08:01 Hct, (36.0-46.0) 37.9 % Today, 08:01 Plt Count, (130-400) 208 10^3/uL Today, 08:01 Complete Metabolic Panel: 2 Sodium, (136-145) 143 mmol/L Today, 08:01 Potassium, (3.5-5.1) 3.6 mmol/L Today, 08:01 Chloride, (98-107) 106 mmol/L Today, 08:01 Carbon Dioxide, (21.0-32.0) 30.7 mmol/L Today, 08:01 BUN, (7-18) 12 mg/dL Today, 08:01 Creatinine, (0.55-1.02) 0.7 mg/dL Today, 08:01 Est GFR (CKD-EPI 2020), (mL/min/1.73m2) 114.88 Today, 08:01 Magnesium, (1.8-2.4) 2.1 mg/dL 02/12/25, 18:15 Calcium, (8.5-10.1) 8.6 mg/dL Today, 08:01 Albumin, (3.4-5.0) 3.9 g/dL Today, 08:01 Glucose, (74-106) 88 mg/dL Today, 08:01 Liver Function Panel: 2 ALT, (14-59) 173 U/L H Today, 08:01 AST, (15-37) 80 U/L H Today, 08:01 Coagulation Panel: 2 INR, (0.9-1.1) 1.0 Today, 08:01 PT, (9.1-11.1) 10.4 sec Today, 08:01 APTT, (20.6-30.2) 26.2 sec Today, 08:01 Pancreas Panel: 2 Lipase, (<78) 26 U/L 02/12/25, 18:12 Thyroid Panel: 2 TSH, (0.36-3.74) 2.95 uIU/mL 02/12/25, 18:12 Anesthesia Assessment and Plan Anesthesia History Personal History: PONV Family History: No Family History of Anesthesia Complications Exercise Tolerance Exercise Tolerance: Metabolic Equivalents>4 Pertinent Negatives Pertinent Negatives: No Symptoms of GERD, No Major Cardiovascular Symptoms or Complaints, No Major Pulmonary Symptoms or Complaints and No History of CVA/TIA Cardiac & Pulmonary Exam Cardiac Exam: Normal S1/S2 Heart Sounds Pulmonary Exam: Clear Bilateral Breath Sounds Implantable Cardiac Device Does patient have a Pacemaker or an ICD?: No Airway Exam Known Difficult Airway: No Mallampati Class: 3 Mouth Opening: Normal (> 3cm) Thyromental Distance: Greater than 3 cm Neck Range of Motion: Full ROM Neck Circumference: Normal Teeth Condition: Normal Dentition ASA Classification ASA Score: ASA 2 Emergency Case?: No NPO Status NPO Status: NPO Clears >2 hours, Solids >8 hours Status Status: Not Relevant due to Medical History Anesthesia Plan Resuscitation Status: Full Code Anesthesia Technique: General Anesthesia Airway Planned: Endotracheal Tube Monitors Used: Standard Monitors
[2025-02-13] MEDS: Lactated Ringers 1,000 ML 75 ML IV (15:41)
--- NOTE | 2025-02-13 16:46 | GB_PTH ---
PATIENT: Merly Bejarano LOC: U#:[id number] AGE/SX: 34/F ROOM: [id number] RE02/12/[address]: Nestor Quiñones DO : 1990 BED: B DIS: 02/14/2025 SPEC #: [id number] RECD: 02/13/25 17:46 STATUS: ISAEL REQ #: [id number] VINCENT: 02/13/25 16:[address]: Nestor Quiñones DEPT: Surgical Specimen RECD BY: Nadeen Canales ENTERED: 02/13/25 17:48 SP TYPE: GB OTHR DR: Unknown,Unknown Tissues: 1 - GALLBLADDER Procedures: GROSS AND MICRO LEVEL 3 Comments: [id number]
[2025-02-13] MEDS: Bupivacaine 0.25% Pres-Free W/EPI 30 ML VIAL (16:51)
--- NOTE | 2025-02-13 17:00 | W.PM.OP ---
Operative Note Operative Note PRE-OP DIAGNOSIS: Acute acalculous cholecystitis POST-OP DIAGNOSIS: same (Acute acalculous cholecystitis) PROCEDURE: Laparoscopic cholecystectomy SURGEON: Nestor Quiñones DISPLAY AND BANNER DESIGNER: Ngozi Roman ANESTHESIA TYPE: General LMA/ETT Refer to Anesthesia Record ESTIMATED BLOOD LOSS: 6.4 PATHOLOGY: other (Gallbladder) COMPLICATIONS: None Patient was transported to: PACU Patient's condition: stable Implants: None Indications: 34-year-old female presenting with right upper quadrant pain. Initial CT scan with severely thickened gallbladder wall and pericholecystic edema prompting additional ultrasound and MRI, which showed a more reasonable wall but continued indications of inflammation. No stones were demonstrated. Findings: Tensely distended gallbladder with surrounding edema Procedure Description: After consent was confirmed to be on the chart, patient was taken to the operating room and transferred on the operating room table. Anesthesia was induced, once anticoagulated will was achieved patient was intubated endotracheally. Left arm was tucked and the abdomen was prepped and draped in the standard sterile fashion. Patient was on scheduled antibiotics but also received a dose of Ancef preoperatively. ICG was given before going to the operating room. SCDs were on and functioning prior to induction of anesthesia. Timeout was completed confirming proper patient, procedure, indication, location with all in attendance and agreement Procedure began by making a stab incision in the left upper quadrant at Huff's point since patient had had prior abdominal operations. Veress needle was introduced into the abdomen and placement was confirmed with negative drop test. Insufflation was begun showing high flows and low opening pressure. Patient was rotated left and a 5 mm trocar was then introduced in the into the abdomen right anterior axillary line subcostal in Optiview fashion. Underlying viscera was inspected and there was no injury secondary to trocar or Veress needle placement. There were no visible adhesions from prior surgeries. Patient was moved to head up and additional 5 mm trocars were then placed at the inferior aspect of the umbilicus and right subcostal mid clavicular line under direct visualization. 12 mm trocar was placed in the subxiphoid position under direct visualization. Gallbladder was tensely distended and edematous there was copious edema so decompression needle was used to remove 60 mL of dark bile. Dome of the gallbladder was grasped and elevated over the liver. Omental adhesions to the gallbladder and liver were taken down with hook cautery to expose the infundibulum. Infundibulum was then grasped and retracted laterally. Peritoneum along the inferior aspect of the gallbladder was incised medially and laterally. A combination of blunt dissection and hook cautery was used to clear connective tissue from the triangle of calot and to expose the critical structures. There was copesou edema posterior to the gallbladder. Critical view of safety was achieved with only the cystic duct and cystic artery entering into the gallbladder and one third of the cystic plate exposed. ICG was used to help guide dissection and confirm anatomy. The 5 mm clip credit card interviewer was then used to place clips proximally and distally on the cystic duct and cystic artery, with 2 clips each on the staying side. Structures were then divided between clips using EndoShears. Gallbladder was removed from the hepatic plate in standard retrograde fashion using hook cautery. Before truncating the peritoneum at the dome of the gallbladder, gallbladder fossa was inspected and hemostasis was ensured. Clips were visualized and remained in place without bleeding or bile present. Gallbladder was then fully removed from the liver and placed in an Endo Catch bag. The right upper quadrant was copiously irrigated until all were returns came back clear. Gallbladder was then removed through the 12 mm trocar site. Fascia at the 12 mm site was then closed with a 0 Vicryl suture on Vadim-Loreto device. Skin incisions were then closed with 3-0 Vicryl deep and 4-0 Monocryl subcuticular sutures prior to being covered with Dermabond. Patient was then awoken in the operating room prior to being taken to PACU for recovery. All counts were reported as correct. No complications were appreciated. Patient appeared to tolerate the procedure well. Nestor Quiñones DO, FACS Date of Procedure: 02/13/25
--- NOTE | 2025-02-13 19:46 | W.ANESPOSTOP ---
Postoperative Evaluation Date, Time and Location Date Performed: 02/13/25 Time Performed: 19:41 Patient Location: Med/Surg Vital Signs Most Recent Imported Vital Signs: Most Recent Vital Signs Temp Pulse Resp BP Pulse Ox 36.5 C 51 L 18 122/77 97 02/13/25 19:31 02/13/25 19:31 02/13/25 19:31 02/13/25 19:31 02/13/25 19:31 Pain Score Most Recent Pain Score: Most Recent Pain Score Pain Level 3 02/13/25 18:17 Assessment Mental Status: Awake (Alert & Oriented to Patient Baseline) Airway and Respiratory Function: Patent airway with normal (patient baseline) respiratory exam Cardiovascular Function: Hemodynamically Stable Hydration Status: Adequately Hydrated Nausea & Vomiting: No Nausea or Vomiting Pain: Pain is tolerable per patient Peripheral Nerve Block: Patient did not receive a nerve block
[2025-02-13] MEDS: Methocarbamol 500 MG TAB PO (21:12)
[2025-02-14] MEDS: Methocarbamol 500 MG TAB PO ×2 (02:10→08:40)
[2025-02-14] MEDS: PIPERACILLIN/TAZO 3.375 GM in Normal Saline 50 ML IVPB ×2 (02:11→08:39)
[2025-02-14 07:24] VITALS: BP 126/73; PULSE 62; RESP 18; TEMP 36.6; O2SAT 97
[2025-02-14] MEDS: Acetaminophen 325 MG TAB 650 MG PO (08:40)
[2025-02-14] MEDS: Ibuprofen 600 MG TAB PO (08:40)
[2025-02-14] MEDS: Normal Saline Flush 10 ML SYR IVP (08:41)
--- NOTE | 2025-02-14 09:58 | DSE_ITS ---
Date of service: 02/14/25 Time of Service: 07:45 DS: Diagnosis Discharge Diagnosis (1) Acute acalculous cholecystitis: Status: Acute (2) Alpha-gal syndrome: Discharge Plan Disposition Patient Disposition: Home Condition: Stable Discharge Details Reason For Visit: acute paul Admit Date/Time: 02/12/25 21:17 Admit Provider: Nestor Quiñones Attending Provider: Nestor Quiñones Primary Care Provider: Unknown,Unknown Hospital Course Hospital Course: 34-year-old female presented to the emergency department with severe right upper quadrant pain. Imaging revealed a thickened gallbladder wall. Ultrasound was done and confirmed thickened gallbladder wall. MRI was done given the marked exaggerated thickness of the wall on imaging and this confirmed acute cholecystitis. There was no evidence of gallstone. Patient was taken for laparoscopic cholecystectomy on February 13, 2025. The operation was completed w ithout complication. Her diet was advanced and she was observed postoperatively. There were no complications. Her vital signs remained within normal limits and she was given discharge instructions and return precautions. Her preop pain resolved with surgery. She discharged home in stable condition Recommendations for Follow Up Recommended tests to be ordered by follow up provider: Follow-up with Dr. Bland in clinic in 2 weeks Home Meds and New Rx's Prescriptions: No Action Progesterone E4M 150 mg capsule 150 mg PO HS Rx Instructions: Take 1 Capsule by mouth every evening at bedtime multivitamin Tablet 1 tab PO QAM Bi-Est cream 1 ml vaginal HS Rx Instructions: Apply 4 clicks (1 mL) topically each day Mag Glycinate 100 mg tablet 100 mg PO DAILY lactobacillus combo no.11 15 billion cell capsule, sprinkle 1 cap PO DAILY Rx Instructions: do not crush/chew/cut; swallow whole OR may open and sprinkle in cold drink/food Discharge Instructions Additional Instructions: Shower anytime. Wash gently over skin glue with soapy hands. Rinse and pat dry. Do not submerge incisions underwater. Okay to walk, climb stairs, and do activities of daily living. Do not lift, push, pull more than 20 pounds for [address] for 2 weeks while taking pain medications. Activity:: see above Equipment/Supplies:: No Equipment Needed Diet:: Normal Diet Discharge Orders Discharge Orders: Discharge Order (Routine); Ordered 02/14/25 Ordered By: Kathie Bland DS: Summary Time Spent with Patient providing and/or coordinating discharge services: Greater than 30 minutes Status at Discharge Functional status at discharge: independent ambulation Overall status at discharge: patient is progressing back to baseline Mental Status: mental status grossly normal Speech and Movement: speech and movement normal Mood: congruent mood Affect: normal affect Exam Narrative Exam Narrative: awake, NAD eomi, MMM midline trachea, neck is symmetric PULM: normal resp effort, equal chest rise with respiration, no wheezing audible CARDIAC: normal PMI, no jvd, regular rate, normal perfusion abdomen is nondistended. extremities are without deformity, normal movement of all four extremities speech is clear and coherent mood and affect are congruent, no focal neurological deficits skin without rash Psych Mental Status: mental status grossly normal Speech and Movement: speech and movement normal Mood: congruent mood Affect: normal affect DS: Data Vitals/I&O Vitals and I&O: Vital Signs Temperature 97.9 F 02/14/25 07:24 Temperature Source Tympanic 02/14/25 07:24 Pulse 62 02/14/25 07:24 Pulse Rhythm Regular 02/13/25 00:48 Pulse 51 L 02/13/25 17:56 Respiratory Rate 18 02/14/25 07:24 Respiratory Effort Normal 02/13/25 00:48 Respiratory Depth Normal 02/13/25 00:48 Respiratory Pattern Normal 02/13/25 00:48 Blood Pressure 126/73 02/14/25 07:24 Blood Pressure Mean 90 02/14/25 07:24 Blood Pressure Position Sitting 02/12/25 18:19 Pulse Oximetry 97 02/14/25 07:24 Respiratory End-tidal CO2 39 02/13/25 17:56 Oxygen Delivery Method Room Air 02/14/25 07:24 Oxygen Flow Rate 0 02/14/25 07:24 Pain Level 5 02/14/25 08:40 Comment RN Notified 02/13/25 18:17 Comment PT ARRIVED IN PACU. 02/13/25 17:09 Intake & Output 02/13/25 02/13/25 02/14/25 11:59 23:59 11:59 Intake Total 1145.417 / 2745.417 1600 / 2745.417 50 / 50 Output Total 300 / 1400 1100 / 1400 Balance 845.417 / 1345.417 500 / 1345.417 50 / 50 Weight 140 lb 140 lb Intake: IV 1145.417 / 2745.417 1600 / 2745.417 50 / 50 Output: Urine 300 / 1400 1100 / 1400 Other: Urine Color Yellow Pale Yellow Yellow Urine Appearance Clear Clear Urine Odor Normal Normal Emesis Description None Data Completed and Pending Labs on day of discharge: Labs from last 24 hours 02/14/25 06:35 WBC Pending RBC Pending Hgb Pending Hct Pending MCV Pending MCH Pending MCHC Pending RDW Pending Plt Count Pending MPV Pending Sodium Pending Potassium Pending Chloride Pending Carbon Dioxide Pending Anion Gap Pending BUN Pending Creatinine Pending Est GFR (CKD-EPI 2020) Pending Glucose Pending Calcium Pending Total Bilirubin Pending Conjugated Bilirubin Pending AST Pending ALT Pending Alkaline Phosphatase Pending Total Protein Pending Albumin Pending PFSH All Active Problems Acalculous cholecystitis (Acute) Acute acalculous cholecystitis (Acute) Medical History Alpha-gal syndrome Endometriosis determined by laparoscopy Surgical History History of laparoscopic-assisted vaginal hysterectomy Social History Smoking/Tobacco Use Status: Never Smoking risk assessment performed?: Yes Alcohol Intake: current Alcohol Intake frequency: a few times a week Alcohol type: wine Drug use: Never Substance use type: does not use Housing: house Do you feel safe at home: Yes Time Spent with Patient Time Spent with Patient: <45 minutes Time was spent: preparing to see the patient(eg.review tests), ordering medications,tests, procedures, referring, communicating with other health career center director and counseling the patient
--- NOTE | 2025-02-14 11:15 | PDOC.CMDIS ---
Date of service: 02/14/25 Time of Service: 11:15 LACE Index Scoring Tool Questions: Length of Stay (in days): 2 Was the patient admitted via the E.D.?: Yes E.D. Visits: 1 Answers: Total Score: 6 Risk of Readmission: Low Risk Care Management Discharge Plan Reason for Hospitalization: acute cholecystitis Discharge Plan: Merly will be discharged home with no new services. She will follow up with her PCP, surgeon and plan of care and transport with family. Patient/Family Education Needs: Review discharge instructions, limitations, follow up plan and discuss Ask Me Three
--- NOTE | 2025-02-14 15:51 | CHAPLAIN ---
Merly had surgery yesterday afternoon and was discharged later today. I visited this morning. Her and her friend Shania were with. She seems to be well supported and was looking forward to getting home with her two kids.
== END 2025-02-14 12:00 | disposition home or self-care (01) ==
LOC: ER 02-13 00:37 → MS 02-13 00:43
PROVIDERS: Admitting Provider Surgery; Emergency Provider Emergency Medicine; Responsible Provider Surgery; Visit Provider Surgery
PROC: 0FT44ZZ Resection of Gallbladder, Percutaneous Endoscopic Approach (ICD-10-PCS; CPT 47562; principal; 2025-02-13 08:00)
DX: K81.2 Acute cholecystitis with chronic cholecystitis (principal); Z91.014 Allergy to mammalian meats
CPT/HCPCS: 47562; 36415; 80048; 80053; 80076; 81025; 83690; 85027; 96361; 96365; 96366; 96372; 96375; 96376; 99285; J1650; 74177; 74181; 76705; 81003; 82248; 83735; 84443; 85025; 85610; 85730; 88304; G0378; J0690; J1100; J1885; J2003; J2250; J2405; J2543; J2704; J3010; J3490

== ENCOUNTER 2025-02-16 10:57 | Outpatient (CLI) | payer BC, SELFPAY ==
[2025-02-16 11:29] LABS: HCT 36.2 % (36.0-46.0); HGB 12.2 g/dL (11.2-15.7); MCH 31.3 pg (27.0-33.0); MCHC 33.7 % (32.0-36.0); MCV 93 fL (80-95); MPV 10.4 fL (8.0-11.0); Platelet Count 230 10^3/uL (130-400); RBC 3.90 10^6/uL (3.93-5.22); RDW 12.0 % (11.7-14.6); RDW-SD 40.6 fL; WBC 7.09 10^3/uL (4.4-10.8)
[2025-02-16 12:02] LABS: ALT 89 U/L (14-59); AST 27 U/L (15-37); Albumin 3.7 g/dL (3.4-5.0); Alkaline Phosphatase 71 U/L (46-116); Anion Gap 9.7 mmol/L (3-11); BUN 6 mg/dL (7-18); Bilirubin, Total 0.3 mg/dL (0.2-1.0); CO2 28.3 mmol/L (21.0-32.0); Calcium 8.7 mg/dL (8.5-10.1); Chloride 106 mmol/L (98-107); Estimated GFR 124.58 (mL/min/1.73m2); Glucose 89 mg/dL (74-106); Potassium 3.8 mmol/L (3.5-5.1); Sodium 144 mmol/L (136-145); Total Protein 6.7 g/dL (6.4-8.2)
== END 2025-02-16 10:58 | disposition home or self-care (01) ==
LOC: LBO 10:57
PROVIDERS: Visit Provider Surgery
DX: R11.0 Nausea (principal); Z98.890 Other specified postprocedural states; Z90.49 Acquired absence of other specified parts of digestive tract
CPT/HCPCS: 36415; 80053; 85027

== ENCOUNTER 2025-02-20 01:42 | Outpatient (CLI) | payer BC, SELFPAY ==
--- NOTE | 2025-02-20 07:00 | DI.RAD_ITS ---
Exam(s) XR CHEST 2V PA LATERAL EXAM: XR CHEST 2V PA LATERAL CLINICAL HISTORY: pleural effusions,bilat,j90 TECHNIQUE: 2D digital imaging was performed. Two views. COMPARISON: CT CT ABDOMEN PELVIS W from 02/16/2025 FINDINGS: HEART: Normal size. Aorta: Not dilated. PULMONARY VASCULATURE: Normal. MEDIASTINUM: Unremarkable. LUNGS: Clear. PLEURAL SPACE: Tiny residual right pleural effusion visible at the posterior costophrenic angle. No pneumothorax. BONE:Unremarkable for age. SOFT TISSUES: Surgical clips noted medial right upper chest. IMPRESSION: Significant decrease in right pleural effusion, now tiny. No left pleural effusion is visible. DATA REPOSITORY: RADIATION DOSE DELIVERED:
== END 2025-02-20 02:02 ==
LOC: DI 01:42
PROVIDERS: Visit Provider Surgery
DX: J90 Pleural effusion, not elsewhere classified (principal)
CPT/HCPCS: 71046